=== PATIENT | female | born 1995 | race American Indian/Alaskan Native ===

== ENCOUNTER 2019-03-26 05:43 | Emergency (ER) | payer BC ==
--- NOTE | 2019-03-26 06:40 | XRay Report ---
LEFT ELBOW 3 VIEWS INDICATION / CLINICAL INFORMATION: Left elbow pain COMPARISON: None available. FINDINGS: BONES / JOINT(S): There is complete posterior dislocation of the elbow. I do not identify a fracture. No significant arthritis. SOFT TISSUES: No significant abnormality. ADDITIONAL FINDINGS: None. IMPRESSION: Complete posterior dislocation of the left elbow. Signer Name: Rohith Li MD Signed: 03/26/2019 6:35 AM Workstation Name: [id number]
[2019-03-26] MEDS ORDERED: MORPHINE 4 MG/1 ML INJ ONE (06:41)
[2019-03-26] MEDS ORDERED: MORPHINE 2 MG/1 ML INJ IM ONE (06:41)
--- NOTE | 2019-03-26 06:43 | Emergency Department Report ---
ED Upper Extremity Inj HPI - General Chief Complaint: Extremity Injury, Upper Stated Complaint: LT ELBOW INJURY Time Seen by Provider: 03/26/19 06:31 Source: patient Mode of arrival: Ambulatory Limitations: No Limitations - History of Present Illness Initial Comments: 23-year-old female presents to ED with left elbow dislocation. Patient stated she was at work and fell down. Patient states this occurred approximately 3 hours ago. She reports mild tingling in her fingers. Patient is able to move her fingers. MD Complaint: Injury to:: left, elbow -: hour(s) (3) Other Extremity Injury: Elbow: Left Other Injuries: none Place: work Improves With: immobilization Worsens With: movement of extremity Context: fall Associated Symptoms: numbness - Related Data Previous Rx's Medication Instructions Recorded Last Taken Type HYDROcodone/APAP 5-325 [[place] 1 each PO Q6HR PRN #7 tablet 03/26/19 Unknown Rx 5/325] Naproxen [Naprosyn] 500 mg PO BID #20 tablet 03/26/19 Unknown Rx Allergies Allergy/AdvReac Type Severity Reaction Status Date / Time No Known Allergies Allergy Verified 03/26/19 06:45 ED Review of Systems ROS: Stated complaint: LT ELBOW INJURY Other details as noted in HPI Comment: All other systems reviewed and negative Musculoskeletal: as per HPI Neurological: paresthesias ED Past Medical Hx - Past Medical History Previous Medical History?: Yes - Surgical History Past Surgical History?: Yes - Social History Smoking Status: Never Smoker Substance Use Type: Marijuana - Medications Home Medications: Home Medications Medication Instructions Recorded Confirmed Last Taken Type HYDROcodone/APAP 5-325 [[place] 1 each PO Q6HR PRN #7 tablet 03/26/19 Unknown Rx 5/325] Naproxen [Naprosyn] 500 mg PO BID #20 tablet 03/26/19 Unknown Rx ED Physical Exam - General Limitations: No Limitations General appearance: alert, in no apparent distress - Head Head exam: Present: atraumatic, normocephalic - Eye Eye exam: Present: normal appearance, EOMI - ENT ENT exam: Present: mucous membranes moist - Neck Neck exam: Present: normal inspection - Respiratory Respiratory exam: Present: normal lung sounds bilaterally. Absent: respiratory distress - Cardiovascular Cardiovascular Exam: Present: regular rate, normal rhythm - GI/Abdominal GI/Abdominal exam: Absent: distended - Extremities Exam Extremities exam: Present: other (deformity, slight swelling noted to left elbow; radial pulse intact; able to flex and extend fingers; sensation grossly intact) - Neurological Exam Neurological exam: Present: alert, oriented X3, motor sensory deficit (tingling in left fingers) - Psychiatric Psychiatric exam: Present: normal affect, normal mood - Skin Skin exam: Present: warm, dry, intact, normal color ED Course Vital Signs 03/26/19 03/26/19 05:48 06:30 Temperature 98.7 F Pulse Rate 88 Respiratory 12 18 Rate Blood Pressure 154/119 O2 Sat by Pulse 100 99 Oximetry - Orthopedic Joint Reduction Joint #1 Consent Obtained: verbal consent Time Out Performed: Yes Side: left Joint Reduction Location: elbow Analgesia: other (morphine 4 mg IM) Technique Used: traction/counter-traction Post-Reduction Neuro Exam: intact Post-Reduction Vascular Exam: intact Post Reduction X-Ray Obtained: Yes Post Reduction X-Ray Results: reduced Splint Applied: Yes (sling) Patient Tolerated Procedure: well ED Medical Decision Making - Radiology Data Radiology results: report reviewed, image reviewed - Medical Decision Making Pt presents to ED w/ left elbow dislocation, no evidence of fracture. Pt gave verbal consent and was reduced using IM morphine only. No conscious sedation was used. Pt neurovascularly intact. Repeat films showed successful reduction. Pt feeling much better. Splint applied. Pt advised to f/u w/ ortho. Return precautions given. - Differential Diagnosis fracture, dislocation, contusion, sprain Critical care attestation.: If time is entered above; I have spent that time in minutes in the direct care of this critically ill patient, excluding procedure time. ED Disposition Clinical Impression: Dislocation of elbow, left, closed Disposition: TO HOME OR SELFCARE Is pt being admited?: No Condition: Stable Instructions: Elbow Dislocation (ED) Prescriptions: Naproxen [Naprosyn] 500 mg PO BID #20 tablet HYDROcodone/APAP 5-325 [[place] 5/325] 1 each PO Q6HR PRN #7 tablet PRN Reason: Pain Referrals: LESLY STEVE MD [Staff Physician] - [facility] Time of Disposition: 07:11
--- NOTE | 2019-03-26 07:27 | XRay Report ---
LEFT ELBOW 2 VIEWS INDICATION / CLINICAL INFORMATION: Post reduction COMPARISON: None available. FINDINGS: BONES / JOINT(S): The previously described posterior dislocation has been reduced. No fracture. SOFT TISSUES: No significant abnormality. ADDITIONAL FINDINGS: None. Signer Name: Rohith Li MD Signed: 03/26/2019 7:23 AM Workstation Name: [id number]
[2019-03-26 08:03] VITALS: BP 122/74
== END 2019-03-26 08:02 | disposition home or self-care (01) ==
LOC: ED 05:43
DX: S53.105A Unspecified dislocation of left ulnohumeral joint, initial encounter (principal); F12.10 Cannabis abuse, uncomplicated; Z79.899 Other long term (current) drug therapy; W18.39XA Other fall on same level, initial encounter; Y93.89 Activity, other specified; Y92.89 Other specified places as the place of occurrence of the external cause; Y99.8 Other external cause status
CPT/HCPCS: 24600; 73070; 73080; 96372; 99284; J2270